=== PATIENT | male | born 1985 | race Caucasian/White ===

== ENCOUNTER 2021-12-12 22:11 | Emergency (ER) | payer BC, SELFPAY ==
--- NOTE | ~2021-12-12 | XR_ITS ---
EXAMINATION: XR finger 4th LT min 2V DATE: 12/12/2021 22:55 INDICATION: Laceration to the base of the left fourth digit TECHNIQUE: Dorsal palmar, lateral and oblique views of the left fourth digit were obtained COMPARISON: None FINDINGS: Alignment is normal. No fracture. Joint spaces are normal. Soft tissues are unremarkable. No soft tis carly gas or radiopaque foreign bodies. IMPRESSION: 1. Negative left fourth digit radiographs. Reviewed, dictated and finalized at location A. [employer]
[2021-12-12 22:13] VITALS: BP 148/82; PULSE 87; RESP 16; TEMP 36.5; O2SAT 100
--- NOTE | 2021-12-12 23:24 | ED.UPPEXIN ---
HPI - Extremity Injury (Upper) General Chief Complaint: Extremity Injury, Upper Stated Complaint: finger injury Time Seen by Provider: 12/12/21 22:39 Source: patient and RN notes reviewed Mode of arrival: ambulatory Limitations: no limitations History of Present Illness HPI narrative: This is a 36 year old Right hand dominant male who presents for evaluation of left hand laceration. Patient was using a screwdriver when it accidentally slipped causing laceration to left palmar aspect of 4th finger. He reports minimal pain. He noticed some tingling just distal to laceration but report that is resolving. His last tetanus has been within past 5 years. He denies any other issues. Related Data Allergies Allergy/AdvReac Type Severity Reaction Status Date / Time Penicillins Allergy Unknown Rash Verified 12/12/21 22:15 Review of Systems Review of Systems: All systems reviewed & are unremarkable except as noted in HPI and below PMFSH Past Medical History Medical History Anxiety Surgical History Surgical History History of placement of ear tubes 1990 History of surgery on arm 1992 Family History Family History Father Carcinoma of colon Mother Depression Thyroid disorder Sibling Hypertension Depression Grandparent Hypertension Cerebrovascular accident Social History Social History Smoking status: Never smoker Alcohol intake: current Substance use: never Exam Const: General: no acute distress and alert Orientation/consciousness: patient oriented x3 Eyes: EOM: EOMs intact bilaterally Resp: Effort & Inspection: normal respiratory effort Neuro: General: patient oriented x3 and moves all extremities Extrem: Other: left hand- palmar aspect proximal 4th finger near MCP joint,1 cm laceration, no exposed tendon, NVI Psych: Mental Status: mental status grossly normal Affect: normal affect Course Reevaluation(s) Date: 12/12/21 Time: 23:42 Vital Signs Vital signs: Vital Signs Temperature 97.7 F 12/12/21 22:13 Pulse Rate 87 12/12/21 22:13 Respiratory Rate 16 12/12/21 22:13 Blood Pressure 148/82 H 12/12/21 22:13 Pulse Oximetry 100 12/12/21 22:13 Temperature 97.7 F 12/12/21 22:13 Pulse Rate 87 12/12/21 22:13 Respiratory Rate 16 12/12/21 22:13 Blood Pressure 148/82 H 12/12/21 22:13 Pulse Oximetry 100 12/12/21 22:13 Procedures Laceration Laceration 1: Date: 12/12/21 Time: 23:42 Site: hand (4th finger) Side (If applicable): left Size (cm): 1 Description: flap Depth: simple, single layer Local Anesthetic: lidocaine 1% Amount of anesthesia used (mL): 1 Pre-repair: wound explored and irrigated ====== Skin Level ====== Skin layer closed with: prolene Size (cm): 4-0 Number of sutures: 1 Technique: horizontal mattress ====== Subcutaneous Layer ====== ====== Muscle Layer ====== ====== Tendon Layer ====== MDM - Extremity Injury (Upper) Imaging Data Radiologist's impression: ITS Impressions Finger X-Ray 12/12/21 23:19 IMPRESSION: 1. Negative left fourth digit radiographs. Discharge Plan Discharge Clinical Impression: Laceration of finger of left hand Patient Disposition: Home, Self-Care Condition: Stable Instructions: Care For Your Stitches (ED), Laceration (ED) Additional Instructions: Today you were treated for finger laceration. Keep wound clean and dry. Watch for signs of infection. Have suture removed in 10 days. Prescriptions: No Action alprazolam 0.5 mg tablet 0.5 mg PO BID PRN (Reason: anxiety) Qty: 60 RF: 0 sertraline [Zoloft] 50 mg tablet 50
[2021-12-12] MEDS: LIDOCAINE HCL 2% LOCAL INJ 20 ML VIAL INFILTRATE (23:43)
== END 2021-12-12 23:52 | disposition home or self-care (01) ==
PROVIDERS: Emergency Provider General Practice; PCP Family Medicine
DX: S61.215A Laceration without foreign body of left ring finger without damage to nail, initial encounter (principal); F41.9 Anxiety disorder, unspecified; W27.0XXA Contact with workbench tool, initial encounter
CPT/HCPCS: 12001; 73140; 99283

== ENCOUNTER 2024-09-01 21:35 | Emergency (ER) | payer BC, SELFPAY ==
[2024-09-01 22:13] VITALS: BP 148/76; PULSE 77; RESP 17; TEMP 36.7; O2SAT 97
--- NOTE | 2024-09-02 01:17 | ED.LOWEXIN ---
HPI - Extremity Injury (Lower) General Chief Complaint: Extremity Injury, Lower Stated Complaint: R leg lac poss infected Time Seen by Provider: 09/02/24 00:56 Source: patient Mode of arrival: ambulatory Limitations: no limitations History of Present Illness HPI Narrative: This is a 39-year-old male that presents to the emergency department for redness swelling to the right upper leg. Reports he was stuck with a thorn nichole about a week ago. Denies fevers. Related Data Allergies Allergy/AdvReac Type Severity Reaction Status Date / Time Penicillins Allergy Unknown Rash Verified 09/01/24 21:35 Review of Systems Review of Systems: CONSTITUTIONAL: Denies fever SKIN: Reports redness and swelling All systems reviewed & are unremarkable except as noted in HPI and below PMFSH Past Medical History Medical History Anxiety Surgical History Surgical History History of placement of ear tubes 1990 History of surgery on arm 1992 Family History Family History Father Carcinoma of colon Mother Depression Thyroid disorder Sibling Hypertension Depression Grandparent Hypertension Cerebrovascular accident Social History Social History Smoking status: Never smoker Alcohol intake: current Substance use: never Exam Narrative: GENERAL: Well-appearing, well-nourished, and in no acute distress. HEAD: Normocephalic, atraumatic. EYES: EOMI. EXTREMITIES: Normal range of motion. No edema. Small to moderate area of redness at the right anterior thigh. No fluctuance to suggest abscess. No lymphangitic streaking SKIN: Warm, dry, no rash. NEURO: No focal deficits. Alert and oriented x3. PSYCH: Normal mood and affect Course Course Emergency Course: patient agrees with plan of care Vital Signs Vital signs: Vital Signs Temperature 98.1 F 09/01/24 22:13 Pulse Rate 77 09/01/24 22:13 Respiratory Rate 17 09/01/24 22:13 Blood Pressure 148/76 H 09/01/24 22:13 Pulse Oximetry 97 09/01/24 22:13 Oxygen Delivery Room Air 09/01/24 22:13 Temperature 98.1 F 09/01/24 22:13 Pulse Rate 77 09/01/24 22:13 Respiratory Rate 17 09/01/24 22:13 Blood Pressure 148/76 H 09/01/24 22:13 Pulse Oximetry 97 09/01/24 22:13 Oxygen Delivery Room Air 09/01/24 22:13 MDM - Extremity Injury (Lower) MDM Narrative Medical decision making narrative: Patient presents to the ER for cellulitis. He is afebrile and nontoxic appearing. No abscess on exam. Will be started on oral antibiotics. He is to follow up with PCP. He was given warnings to return to the ER Differential Diagnosis Differential diagnosis: Likely other (cellulitis, abscess) Critical Care Time Critical Care Time Critical Care Time: No Discharge Plan Discharge Clinical Impression: Cellulitis Qualifiers: Site of cellulitis: extremity Site of cellulitis of extremity: lower extremity Laterality: right Qualified Code(s): L03.115 - Cellulitis of right lower limb Patient Disposition: Home, Self-Care Condition: Stable Instructions: Antibiotic Form, Cellulitis (ED) Additional Instructions: Return to the emergency department if you experience fever, worsening redness or swelling of your wound, abnormal drainage from your wound, or any other symptoms that are concerning to you. Clean with mild soap and water daily. Take oral antibiotic as prescribed Follow-up with your primary care doctor for wound check Prescriptions: New cephalexin 500 mg capsule 500 mg PO Q6H 7 Days Qty: 28 0RF No Action alprazolam 0.5 mg tablet 0.5 mg PO BID PRN (Reason: anxiety) Qty: 20 0RF sertraline 50 mg tablet 50 mg PO DAILY Qty: 90 3RF Follow-up/Referrals: Landon Vail DO [Primary Care Provider] -
[2024-09-02] MEDS: CEPHALEXIN 500 MG CAPSULE PO (01:38)
== END 2024-09-02 01:43 | disposition home or self-care (01) ==
PROVIDERS: Emergency Provider Physician Assistant; PCP Internal Medicine
DX: L03.115 Cellulitis of right lower limb (principal)
CPT/HCPCS: 99283; A9270

== ENCOUNTER 2025-02-24 07:46 | Outpatient (CLI) | payer BC, SELFPAY ==
[2025-02-24 08:18] LABS: Basophils Percent Auto 0.7 % (0.2-1.2); Eosinophils Absolute Auto 0.2 K/mm3 (0-0.3); Eosinophils Percent Auto 4.4 % (0-4.4); Hematocrit 45.8 % (42.0-52.0); Immature Granulocyte Absolute 0.03 K/mm3 (0.00-0.031); Immature Granulocyte Percent A 0.7 % (0-0.5); Lymphocytes Percent Auto 46.7 % (18.3-44.2); Mean Corpuscular HGB Conc 32.8 g/dl (32-36); Mean Corpuscular Hemoglobin 30.5 pg (26-34); Mean Corpuscular Volume 93.3 fl (80-100); Monocytes Absolute Auto 0.5 K/mm3 (0.1-0.6); Monocytes Percent Auto 10.7 % (2.6-8.5); Neutrophils Absolute Auto 1.7 K/mm3 (1.3-6.7); Neutrophils Percent Auto 36.8 % (45.5-73.1); Platelet Count Result 196 k/mm3 (150-375); Red Blood Count 4.91 M/mm3 (4.6-6.20); Red Cell Distribution Width 11.9 % (11.5-14.5); White Blood Count 4.5 K/mm3 (4.5-10.0)
[2025-02-24 08:21] LABS: Alanine Aminotransferase 33 U/L (6-50); Albumin Level 4.9 g/dL (3.5-5.1); Alkaline Phosphatase 48 U/L (38-126); Anion Gap 8 mmol/L (4-12); Aspartate Amino Transferase 34 U/L (17-59); Bilirubin,Total 0.8 mg/dL (0.2-1.3); Blood Urea Nitrogen 25 mg/dL (9-20); Calcium 9.1 mg/dL (8.4-10.2); Carbon Dioxide 28 mmol/L (22-30); Chloride 103 mmol/L (98-107); Cholesterol 241 mg/dL (0-200); Estimated Glomerular Filt Rate > 60; Glucose 114 mg/dL (65-110); HDL Direct 60 mg/dL; Potassium 3.7 mmol/L (3.4-5.0); Sodium 139 mmol/L (137-145); Triglycerides 75 mg/dL (<150)
[2025-02-24 08:32] LABS: LDL Cholesterol Direct 133 mg/dL
[2025-02-24 08:50] LABS: Vitamin D 25 Hydroxy 34.3 ng/mL
[2025-03-01 14:10] LABS: Apolipoprotein B 123 mg/dL
== END 2025-02-24 07:47 | disposition home or self-care (01) ==
LOC: ANHLAB 07:47
PROVIDERS: PCP Family Medicine; Visit Provider Family Medicine
DX: R73.9 Hyperglycemia, unspecified (principal); E78.5 Hyperlipidemia, unspecified; E55.9 Vitamin D deficiency, unspecified; R53.83 Other fatigue
CPT/HCPCS: 36415; 80053; 80061; 82172; 82306; 83036; 84443; 85025